=== PATIENT | male | born 1985 | race Caucasian/White ===

== ENCOUNTER → 2019-12-11 | Outpatient (CLI) | payer OTHER | END | disposition home or self-care (01) | LOC: LAB EV 11:13 → LAB SHORT 11:13 | DX: R07.0 Pain in throat (principal) | CPT/HCPCS: 87081 ==

== ENCOUNTER 2023-08-08 06:55 | Emergency (ER) | payer OTHER ==
[~2023-08-08] VITALS: Ht 195.6 cm; Wt 83.9 kg
[2023-08-08 07:20] VITALS: BP 145/85
[2023-08-08] MEDS ORDERED: Prednisone20 MG PO (07:30)
== END 2023-08-08 08:23 | disposition home or self-care (01) ==
LOC: ER 06:55
DX: T63.441A Toxic effect of venom of bees, accidental (unintentional), initial encounter (principal); Z23 Encounter for immunization; X58.XXXA Exposure to other specified factors, initial encounter
CPT/HCPCS: 90471; 90715; 96374; 99282-25; A9270; J7512